=== PATIENT | male | born 1990 | race Caucasian/White ===

== ENCOUNTER 2023-10-07 01:03 | Emergency (ER) | payer BC ==
[~2023-10-07] VITALS: Ht 167.6 cm; Wt 100.0 kg
[2023-10-07 01:28] VITALS: BP 152/95; RESP 15; TEMP 98.1; O2SAT 97
[2023-10-07 01:29] VITALS: PULSE 115
[2023-10-07] MEDS ORDERED: NAP5EC MT (05:26)
== END 2023-10-07 04:40 | disposition left against medical advice (07) ==
LOC: ER 01:15
DX: M79.643 Pain in unspecified hand (principal); Z53.21 Procedure and treatment not carried out due to patient leaving prior to being seen by health care provider
CPT/HCPCS: 99281

== ENCOUNTER 2023-10-07 04:41 | Emergency (ER) | payer BC ==
[~2023-10-07] VITALS: Ht 167.6 cm; Wt 100.0 kg
[2023-10-07 04:55] VITALS: TEMP 98.1; O2SAT 97
[2023-10-07] MEDS ORDERED: NAP5EC MT (05:26)
[2023-10-07 05:30] VITALS: BP 152/95; PULSE 104; RESP 15
[2023-10-07] MEDS: IBUPROFEN 800MG TABLET PO ONE (05:30)
== END 2023-10-07 06:16 | disposition home or self-care (01) ==
LOC: ER 04:46
DX: S00.81XA Abrasion of other part of head, initial encounter (principal); Y08.89XA Assault by other specified means, initial encounter; Y93.89 Activity, other specified; Y92.89 Other specified places as the place of occurrence of the external cause; Y99.8 Other external cause status
CPT/HCPCS: 99282